=== PATIENT | male | born 1970 | race Caucasian/White ===

== ENCOUNTER 2020-06-30 13:17 | Emergency (ER) | payer OTHER ==
[~2020-06-30 13:17] MED LIST: ALDACTONE25 MG PO; APRESOLINE100 MG PO; ASPIRIN CHEWABL81 MG PO; FUROSEMIDE PO; GLUCOPHAGE1000 MG PO; K-DUR20 MEQ PO; LOPRESSOR50 MG PO; METOLAZONE2.5 MG PO; ZANTAC150 MG PO; ZESTRIL10 MG PO; ZOCOR20 MG PO
[2020-06-30] MEDS ORDERED: NORCO 5-325 TA1 EACH PO (15:10)
== END 2020-06-30 15:22 | disposition home or self-care (01) ==
LOC: FER 13:17
DX: S82.62XA Displaced fracture of lateral malleolus of left fibula, initial encounter for closed fracture (principal); M79.672 Pain in left foot; I12.9 Hypertensive chronic kidney disease with stage 1 through stage 4 chronic kidney disease, or unspecified chronic kidney disease; E11.22 Type 2 diabetes mellitus with diabetic chronic kidney disease; N18.30 Chronic kidney disease, stage 3 unspecified; F17.200 Nicotine dependence, unspecified, uncomplicated; W00.0XXA Fall on same level due to ice and snow, initial encounter; Y92.009 Unspecified place in unspecified non-institutional (private) residence as the place of occurrence of the external cause
CPT/HCPCS: 73610; 73630